=== PATIENT | female | born 1995 | race Caucasian/White ===

== ENCOUNTER 2016-10-02 12:43 | Emergency (ER) | payer MEDICAID ==
[2016-10-02] MEDS ORDERED: KETOROLAC 30 MG/ML VIAL IM ONE (13:11)
--- NOTE | 2016-10-02 13:21 | Emergency Department Record ---
History of Present Illness - General Chief complaint: Pain Stated complaint: CHEST PAIN FOR A WEEK Time Seen by Provider: 10/02/16 13:06 Source: Patient Mode of Arrival: Ambulatory Limitations: No limitations - History of Present Illness Initial comments: The patient is here due to sharp stabbing retrosternal CP for the last couple of weeks. The pain is intermittent and seems to be brought on with chest twisting and rotation. She denies any SOB, JOSEPH, sweating, nausea or CP with exertion. The patient did see her Chiropractor for it last week and was "adjusted" which did relieve the pain for a few days but then it did return. She has had no leg pain, swelling, or recent travel. MD Complaint: Other Onset/Timin -: Week(s) Location: Other History of Same: No Radiation: Proximal Severity scale (1-10): 7 Quality: Aching, Stabbing Consistency: Constant Improves with: Nothing Worsens with: Nothing Associated Symptoms: Denies other symptoms - Related Data Home Medications Medication Instructions Recorded Confirmed Last Taken Ondansetron HCl [Zofran] 4 mg PO ASDIR 04/07/15 10/02/16 04/04/15 Previous Rx's Medication Instructions Recorded Naproxen [Naprosyn] 250 mg PO BID #14 tablet 10/02/16 Allergies Allergy/AdvReac Type Severity Reaction Status Date / Time Sulfa (Sulfonamide Allergy SWOLLEN Verified 10/02/16 12:54 Antibiotics) EYES Travel Screening - Travel/Exposure Within Last 30 Days Have you traveled within the last 30 days?: No Review of Systems Constitutional: Denies: Chills, Fever Eyes: Denies: Eye discharge ENT: Denies: Congestion Respiratory: Denies: Cough, Dyspnea Cardiovascular: Denies: Arrhythmia, Dyspnea on exertion Past Medical History - SOCIAL HISTORY Smoking Status: Never smoker Alcohol Use: None Drug Use: None - RESPIRATORY Hx Respiratory Disorders: Yes Hx Bronchitis: Yes - CARDIOVASCULAR Hx Cardio Disorders: Yes Comment:: murmur - NEURO Hx Neuro Disorders: No - GI Hx GI Disorders: Yes Hx Irritable Bowel: Yes - Hx Genitourinary Disorders: No - ENDOCRINE Hx Endocrine Disorders: No - MUSCULOSKELETAL Hx Musculoskeletal Disorders: Yes Hx Arthritis: Yes - PSYCH Hx Psych Problems: Yes Hx Anxiety: Yes - HEMATOLOGY/ONCOLOGY Hx Hematology/Oncology Disorders: No Family Medical History Any Significant Family History?: No Physical Exam - General General Appearance: Alert, Oriented x3, Cooperative, No acute distress - Head Head exam: Atraumatic, Normocephalic, Normal inspection - Eye Eye exam: Normal appearance, PERRL - Neck Neck exam: Normal inspection, Full ROM. negative: Tenderness - Respiratory Respiratory exam: Normal lung sounds bilaterally, Chest wall tenderness (The pain is 100% reproducible to palpation of the superior sternal area.). negative : Respiratory distress - Cardiovascular Cardiovascular Exam: Regular rate, Normal rhythm, Normal heart sounds - GI/Abdominal GI/Abdominal exam: Soft, Normal bowel sounds. negative: Tenderness - Extremities Extremities exam: Normal inspection, Full ROM, Normal capillary refill. negative: Calf tenderness, Pedal edema, Tenderness Course Vital Signs 10/02/16 12:51 Temperature 98.2 F Pulse Rate 76 Respiratory 18 Rate Blood Pressure 123/72 Pulse Ox 98 - Reevaluation(s) Reevaluation #1: The patient is doing much better at this time. She denies any pain unless twisting or moving. I did explain the test results to the patient and the need for F/U. 10/02/16 13:51 Medical Decision Making - Data Complexity MDM Data: X-Ray Ordered and/or Reviewed, EKG Ordered and/or Reviewed - EKG Data -: EKG Interpreted by Me EKG: No Acute Changes, Normal EKG - Radiology Data Radiology results: Report reviewed (CXR: Neg.) Disposition Disposition: Discharge Clinical Impression: Chest wall pain Disposition: Home, Self-Care Condition: (1) Good Instructions: Chest Wall Pain (ED) Additional Instructions: Please take the Naprosyn for pain and use your home Cameron if needed. Please see your PCP early next week for recheck if not better and return to the ER for any increasing pain, fever, or trouble breathing. Prescriptions: Naproxen [Naprosyn] 250 mg PO BID #14 tablet Forms: Patient Portal Access Time of Disposition: 13:53
--- NOTE | 2016-10-04 14:11 | RADIOLOGY REPORT ---
DATE: 10/02/2016. EXAM: TWO VIEWS OF THE CHEST. HISTORY: DIFFICULTY BREATHING. TECHNIQUE: Frontal and lateral views of the chest were obtained. COMPARISON: Chest dated 12/25/2014. FINDINGS: The heart size is normal. The lungs are clear. No pneumothorax. IMPRESSION: NEGATIVE CHEST. JOB NUMBER: [id number] MTDD
== END 2016-10-02 14:00 | disposition home or self-care (01) ==
LOC: ER 12:43
DX: R07.9 Chest pain, unspecified (principal)
CPT/HCPCS: 99283 ×2; 96374; 71020; 93005; 93010; J1885